=== PATIENT | female | born 1985 | race Caucasian/White ===

== ENCOUNTER 2017-11-16 12:43 | Inpatient (IN) | payer OTHER ==
[~2017-11-16] VITALS: Ht 165.1 cm; Wt 69.9 kg
[2017-11-16 14:00] LABS: BASOPHIL % 0.1 % (0-2); PLATELET COUNT 278 x10^3mcL (130-400); RED CELL DISTRIBUTION WIDTH 13.2 % (11.5-14.5)
[2017-11-16 14:01] LABS: UA SPECIFIC GRAVITY >=1.030 (1.005-1.035); microscopic required? YES; urine erythrocyte NEGATIVE (NEGATIVE)
[2017-11-16 14:22] LABS: FREE T4 0.98 ng/dL (0.76-1.46); FREE THYROXINE INDEX 2.5 ug/dL (1.4-4.5); T4(THYROXINE) 7.7 ug/dL (4.7-13.3)
[2017-11-16 14:26] LABS: AMPHETAMINE QUAL UR POSITIVE (See below)
[2017-11-16 14:28] LABS: CALCIUM 8.9 mg/dL (8.5-10.1); CARBON DIOXIDE 26.5 mmol/L (21-32); CHLORIDE SERUM 100 mmol/L (98-107); CREATININE SERUM 0.7 mg/dL (0.6-1.0); GFR1 > 60 mL/min; GLUCOSE SERUM 103 mg/dL (74-106); POTASSIUM SERUM 3.4 mmol/L (3.5-5.1); SODIUM SERUM 136 mmol/L (136-145)
[2017-11-16 14:38] LABS: ALKALINE PHOSPHATASE 128 U/L (46-116); ALT/SGPT 25 U/L (14-59); AST/SGOT 21 U/L (15-37); BILIRUBIN TOTAL 0.36 mg/dL (0.20-1.00); TOTAL PROTEIN, SERUM 8.2 g/dL (6.4-8.2)
[2017-11-16 14:41] LABS: ALBUMIN 3.3 g/dL (3.4-5.0)
[2017-11-16 14:42] LABS: C REACTIVE PROTEIN 12.7 mg/dL (<=0.9)
[2017-11-16 14:45] LABS: MAGNESIUM 1.8 mg/dL (1.8-2.4); PHOSPHOROUS 2.9 mg/dL (2.5-4.9)
[2017-11-16 15:08] LABS: ERYTHROCYTE SED RATE 89 mm/hr (0-20)
[2017-11-16 15:28] LABS: CHOLESTEROL/HDL RATIO 2.3
[2017-11-16 15:29] LABS: T3 TOTAL 0.82 ng/mL
[2017-11-16 16:34] VITALS: BP 135/87
[2017-11-16 20:28] VITALS: BP 112/61
[2017-11-17 04:30] VITALS: BP 111/73
[2017-11-17 06:03] LABS: BASOPHIL % 0.2 % (0-2); PLATELET COUNT 246 x10^3mcL (130-400); RED CELL DISTRIBUTION WIDTH 13.3 % (11.5-14.5)
[2017-11-17 06:24] LABS: CALCIUM 7.9 mg/dL (8.5-10.1); CARBON DIOXIDE 22.9 mmol/L (21-32); CHLORIDE SERUM 104 mmol/L (98-107); CREATININE SERUM 0.5 mg/dL (0.6-1.0); GFR1 > 60 mL/min; GLUCOSE SERUM 110 mg/dL (74-106); MAGNESIUM 1.7 mg/dL (1.8-2.4); PHOSPHOROUS 3.3 mg/dL (2.5-4.9); POTASSIUM SERUM 3.9 mmol/L (3.5-5.1); SODIUM SERUM 135 mmol/L (136-145)
[2017-11-17 09:48] VITALS: BP 117/66
[2017-11-17 13:22] VITALS: BP 107/69
[2017-11-17 18:40] VITALS: BP 118/69
[2017-11-17 20:36] VITALS: BP 106/57
[2017-11-18 05:20] VITALS: BP 107/50
[2017-11-18 06:54] LABS: CALCIUM 8.4 mg/dL (8.5-10.1); CHLORIDE SERUM 104 mmol/L (98-107); CREATININE SERUM 0.6 mg/dL (0.6-1.0); GFR1 > 60 mL/min; GLUCOSE SERUM 111 mg/dL (74-106); MAGNESIUM 1.9 mg/dL (1.8-2.4); PHOSPHOROUS 3.2 mg/dL (2.5-4.9); POTASSIUM SERUM 3.7 mmol/L (3.5-5.1); SODIUM SERUM 137 mmol/L (136-145)
[2017-11-18 06:56] LABS: BASOPHIL % 0.1 % (0-2); PLATELET COUNT 270 x10^3mcL (130-400); RED CELL DISTRIBUTION WIDTH 13.4 % (11.5-14.5)
[2017-11-18 09:43] VITALS: BP 120/72
[2017-11-18] MEDS ORDERED: BD LACTINEX1.4 MG PO (11:47)
[2017-11-18] MEDS ORDERED: PENICILLIN VK500 MG PO (11:47)
[2017-11-18] MEDS ORDERED: LORAZEPAM0.5 MG PO (11:47)
[2017-11-18 11:48] VITALS: BP 133/76
[2017-11-18] MEDS ORDERED: AUG500 PO (11:49)
[2017-11-18 12:53] VITALS: BP 133/76
== END 2017-11-18 14:08 | disposition home or self-care (01) | DRG 351 ==
LOC: ED 12:43 → DU 13:47
PROVIDERS: Family Medicine; Specialist
DX: M71.121 Other infective bursitis, right elbow (principal); N17.0 Acute kidney failure with tubular necrosis; G92 Toxic encephalopathy; L03.113 Cellulitis of right upper limb; N39.0 Urinary tract infection, site not specified; E44.1 Mild protein-calorie malnutrition; E87.1 Hypo-osmolality and hyponatremia; E83.42 Hypomagnesemia; E87.6 Hypokalemia; F15.10 Other stimulant abuse, uncomplicated; F12.10 Cannabis abuse, uncomplicated; L02.413 Cutaneous abscess of right upper limb; F17.210 Nicotine dependence, cigarettes, uncomplicated; R80.9 Proteinuria, unspecified; K52.9 Noninfective gastroenteritis and colitis, unspecified; Z68.25 Body mass index [BMI] 25.0-25.9, adult; Z98.891 History of uterine scar from previous surgery
CPT/HCPCS: 83880; 84439; 87046; 87046-59; 94150; 97535-GP; J1885; J1956; J2001; J2543; J3490; J7030; Q0092